=== PATIENT | male | born 1950 | race African-American/Black ===

== ENCOUNTER 2019-10-06 09:21 | Outpatient (CLI) | payer MEDICARE, MEDICAID ==
--- NOTE | 2019-10-06 16:13 | Diagnostic Imaging Report ---
Indication: Back pain Technique: MRI examination of the Lumbar spine was performed in a 1.5 Francine magnet. Sequences obtained include sagittal and axial T1 and T2 fast spin echo, and sagittal STIR. Pre/Post gadolinium axial and sagittal T1 FSE w/ fat saturation obtained. Comparison: none Findings: Bone marrow signal is essentially normal. There is normal alignment. There are no paravertebral or paraspinous fluid collections, mass or edema identified. T12-L1: Hypertrophied facets noted. There is no foraminal or central stenosis. Conus medullaris is seen at about this level. L1-2: Narrowing and desiccation of the intervertebral discs, endplate spurs and concentric disc bulge noted with hypertrophied facets. There is no central stenosis. Mild bilateral foraminal stenosis demonstrated. L2-3: Narrowing of intervertebral disc demonstrated with facet arthropathy, concentric disc bulge. Mild bilateral foraminal stenosis demonstrated. L3-4: Narrowing of intervertebral disc demonstrated. Hypertrophied facets demonstrated. Moderate bilateral foraminal stenosis is present. Central canal is capacious. L4-5: Narrowing of this intervertebral disc, concentric disc bulge, endplate osteophytes demonstrated. Mild central stenosis and narrowing of the lateral recess demonstrated. Facet arthropathy is moderate. There is moderate to severe bilateral foraminal stenosis. L5-S1: Mild narrowing of this intervertebral disc demonstrated. Facet hypertrophy demonstrated. Moderate to severe bilateral foraminal stenosis is present. IMPRESSION: Degenerative spondylosis demonstrated multiple levels as described above
--- NOTE | 2019-10-06 16:16 | Diagnostic Imaging Report ---
Indication: Back pain Technique: MRI examination of the thoracic spine was performed in a 1.5 Francine magnet. Sequences obtained include sagittal and axial T1 and T2 fast spin echo, and sagittal STIR. Pre/Post gadolinium axial and sagittal T1 FSE w/ fat saturation obtained. Comparison: none Findings: Bone marrow signal is normal. Alignment is normal. Multilevel narrowing and desiccation of intervertebral discs are demonstrated with multilevel concentric disc bulges noted. Vertebral endplate spurs noted multiple levels. The spinal cord is normal in appearance. There is no evidence of stenosis of the central canal or cord compression. No foraminal stenosis appreciated. There is no abnormal enhancement identified. The paraspinous and paravertebral soft tissues are unremarkable. IMPRESSION: Degenerative disc disease at multiple levels
--- NOTE | 2019-10-06 16:42 | Diagnostic Imaging Report ---
Indication: Neck pain Technique: MRI examination of the cervical spine was performed in a 1.5 Francine magnet. Sequences obtained include sagittal and axial T1 and T2 fast spin echo, and sagittal STIR. Pre/Post ax/sagittal gadolinium T1 fat sat. Comparison: none Findings: C3-4: There is a posterior central low signal intensity focus epidural lesion likely a disc fragment measuring 1 x 0.5 x 0.8 cm in craniocaudal, AP, transverse dimensions respectively. There is severe compression of the cord at this level with a residual central thecal sac diameter of perhaps 3 mm. The ligamentum flavum appears hypertrophied at this level posteriorly. There is hypertrophy of the facets. There is moderate to severe foraminal stenosis. The intervertebral disc at this level is narrowed and desiccated. The relationship of this disc fragment to the C3-4 disc is not certain. There may be an attachment or this may be a completely sequestered disc fragment. Postgadolinium images showed nonenhancement of the central portion of this disc fragment with some enhancement around it. C2-3: Mild concentric disc bulge demonstrated. No central or foraminal stenosis appreciated. C4-5: Mild anterolisthesis demonstrated at this level. There is severe narrowing of intervertebral disc. There is mild central stenosis at this level. Mild to moderate bilateral foraminal stenosis demonstrated. C5-6: Mild narrowing of intervertebral disc demonstrated. Concentric disc bulge demonstrated. Superimposed central to slightly left-central moderate sized disc protrusion noted deforming the thecal sac and abutting the ventral surface of the cord, also deformed. There is mild central and foraminal stenosis bilaterally. Facet hypertrophy noted. C6-7: Narrowing of intervertebral discs, endplate osteophytes demonstrated. Moderate sized posterior central disc protrusion demonstrated deforming the anterior thecal sac and deforming the ventral surface of the spinal cord. Central stenosis present. Mild to moderate foraminal stenosis appreciated at this level. Date for C7-T1: Narrowing of intervertebral disc demonstrated. No evidence of canal or neural foraminal stenosis. Desiccation and narrowing with endplate osteophytes demonstrated at T1-2, T2-3, and T3-4. Bone marrow signal is mildly heterogeneous. There is no bone marrow edema. No paraspinous or paravertebral soft tissue edema or abnormal fluid collections identified. IMPRESSION: Severe central spinal stenosis and compression of the cord at C3-4 secondary to a posterior epidural disc herniation measuring approximately 1 x 0.5 x 0.8 cm. Not certain if this is still attached to the parent C3-4 disc (extrusion with migration) or whether this is a completely detached disc fragment (sequestered). C3-4 also notable for severe bilateral foraminal stenosis. C4-5: Anterolisthesis. Severe disc disease. Mild central stenosis. Mild to moderate bilateral foraminal stenosis. C5-6: Disc disease. Left central moderate size posterior disc protrusion. Mild central stenosis and foraminal stenosis. C6-7: Moderate posterior disc protrusion. Mild central stenosis. Mild to moderate bilateral foraminal stenosis.
--- NOTE | 2019-10-06 16:53 | Diagnostic Imaging Report ---
Indication: Full body weakness. Proximal muscle weakness Technique: The head was imaged in a 1.5 [employer] magnet. Sequences obtained include sagittal and axial T1 FLAIR, axial T2 fast spin echo with fat saturation, axial T2 FLAIR, diffusion and ADC map. Gadolinium-enhanced axial and coronal T1 FLAIR obtained also. Comparison: None Findings: There is mild prominence of the sulci, ventricles, and basal cisterns consistent with atrophy. Mild, nonspecific T2 hyperintensity noted within white matter. This may be due to chronic small vessel disease. No abnormal enhancement is identified. There is no restricted diffusion. Tony-white differentiation is normal. There is no mass effect, midline shift, edema, or hemorrhage. There are no abnormal extra-axial or intra-axial fluid collections. The corpus callosum and sella are unremarkable. The brainstem and cerebellum are unremarkable. Bone marrow signal within the visualized osseous structures appears age appropriate and unremarkable otherwise. Impression: No acute intracranial findings. Age-related findings including atrophy and evidence of chronic small vessel disease involving white matter tracts.
== END 2019-10-06 11:21 | disposition home or self-care (01) ==
LOC: MRI 09:21 → EDSEX 09:21 → MRI 11:21
DX: M54.9 Dorsalgia, unspecified (principal); M51.34 Other intervertebral disc degeneration, thoracic region; M47.9 Spondylosis, unspecified; M50.322 Other cervical disc degeneration at C5-C6 level; M48.02 Spinal stenosis, cervical region; R53.1 Weakness; I73.9 Peripheral vascular disease, unspecified
CPT/HCPCS: 70553; 72156; 72157; 72158; A9585